=== PATIENT | female | born 1975 | race Caucasian/White ===

== ENCOUNTER 2023-06-14 13:44 | Outpatient (CLI) | payer BC | END 2023-06-14 13:45 | disposition home or self-care (01) | LOC: CSHMAMMO 13:44 | PROVIDERS: ATTEND Obstetrics & Gynecology | DX: Z12.31 Encounter for screening mammogram for malignant neoplasm of breast (principal) | CPT/HCPCS: 77063; 77067 ==

== ENCOUNTER 2024-06-18 15:27 | Outpatient (CLI) | payer BC | END 2024-06-18 15:28 | disposition home or self-care (01) | LOC: CSHMAMMO 15:27 | PROVIDERS: ATTEND Family Medicine | DX: Z12.31 Encounter for screening mammogram for malignant neoplasm of breast (principal) | CPT/HCPCS: 77063; 77067 ==